=== PATIENT | male | born 1955 | race Caucasian/White ===

== ENCOUNTER 2019-08-30 14:23 | Outpatient (RCR) | payer MEDICARE, SELFPAY ==
--- NOTE | 2019-08-30 15:36 | PTOPEVAL ---
PHYSICAL THERAPY EVALUATION AND PLAN OF CARE 08-30-2019 The PT evaluation was completed for the diagnosis of R knee pain. With the evaluation, it appears that he may have issues with his medial meniscus or arthritis of the medial joint. He was educated on monitoring his knee, using ice, over the counter meds and activity/rest balance. He has good ROM and strength over his knee and hip. Leukotape was applied to his medial knee and he was educated on how to apply and name of the tape to obtain, if it helped his pain. He is to call if he has any further questions, or if he has any changes and feels he needs to come in for additional treatment, with his plan of care set for 0-2x/week for 4 weeks. Thank you for referring Joey Graham to [facility]. Please review, sign, date and return this plan of care AKI. I agree with and certify that the following plan of care is medically necessary. Referring Physician Date Attending Provider: DO Lilibeth BurciagaPT Outpatient Evaluation Start: 08/30/19 14:39 Document 08/30/19 14:35 SOFI (Rec: 08/30/19 15:33 SOFI [email or web address]) Outpatient Past Medical History Past Medical History Source of Past Medical History Patient Neurological History Hx Neurological Disorders No Significant History Cardiovascular History Hx Deep Vein Thrombosis Yes: 15 years ago- on blood thiner: L calf,pulmonary embolism Hx Hypercholesterolemia Yes: meds Hx Hypertension Yes: meds Respiratory History Hx Pulmonary Embolism Yes: After DVT on Xarelto Gastrointestinal History Hx Polyps Yes: colon Genitourinary History Hx Genitourinary Disorders No Significant History Musculoskeletal History Hx Other Musculoskeletal Disorders Yes: R knee pain, R foot pain/ Joyce neuroma Hematological History Hx Hematological Disorders No Significant History Endocrine History Hx Endocrine Disorders No Significant History HEENT History Hx HEENT Disorders No Significant History Integumentary History Hx Skin Disorders No Significant History Reproductive History Hx Reproductive Disorders No Significant History Psychosocial History Hx Psychiatric Disorders No Significant History Pain History History of Any Previous or Ongoing No Significant History Instance of Pain Anesthesia History Hx Anesthesia Reactions No Significant History Evaluation Information Problem Diagnosis R knee pain Onset June 2019 Subjective Information gradual pain, doing more Query Text:As Reported By Patient/ walking; stairs, cross leg Family increase pain; Diagnostic Tests X-Rays For This Problem No MRI For This Problem No Other Tests For This Problem No Previous Treatments Previous Treatments For This Problem no PT or treatment Prior Level of Function Activity Level (Last
--- NOTE | 2019-10-28 13:47 | PCPTNOTE ---
DISCHARGE PHYSICAL THERAPY 10-28-2019 Attending Provider: Carlyle Wesley DO Patient:Joey Graham Date of :1955 Joey has not returned for any further treatments since the PT evaluation on 08/30/2019, for the diagnosis of R knee pain, therefore he will be discharged at this time. The goals were not assessed. Thank you for referring Mr. Graham to [facility]. Please review, sign, date and return this discharge summary AKI. I have been updated about the patient's current status and I agree with discharge from the above service at this time. Referring Physician Date
== END 2019-10-29 07:43 | disposition home or self-care (01) ==
LOC: ANHPT 14:23
PROVIDERS: PCP Internal Medicine; Visit Provider Internal Medicine
DX: M25.561 Pain in right knee (principal)
CPT/HCPCS: 97161

== ENCOUNTER 2024-03-27 15:14 | Outpatient (CLI) | payer MEDICARE, SELFPAY ==
--- NOTE | ~2024-03-27 | XR_ITS ---
EXAMINATION: XR knee LT 3V DATE: 03/27/2024 15:24 INDICATION: Left knee pain. TECHNIQUE: 3 views of left knee were obtained. COMPARISON: None. FINDINGS: Alignment is normal. No fracture. There is mild osteoarthritis of medial and lateral compar tments characterized by tiny osteophytes. No joint space narrowing. No knee joint effusion. IMPRESSION: 1. Mild left knee osteoarthritis. Reviewed, dictated and finalized at location B. L [facility] [employer] [facility]W[employer]
--- NOTE | ~2024-03-27 | XR_ITS ---
EXAMINATION: XR knee RT 3V DATE: 03/27/2024 15:24 INDICATION: Right knee pain. TECHNIQUE: 3 views of right knee were obtained. COMPARISON: None. FINDINGS: Alignment is normal. No fracture. There is mild osteoarthritis of patellofemoral compartmen t. There is a small knee joint effusion. IMPRESSION: 1. Mild right knee osteoarthritis. 2. Small right knee joint effusion. Reviewed, dictated and finalized at location B. 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
== END 2024-03-27 15:15 | disposition home or self-care (01) ==
LOC: MICIMG 15:15
PROVIDERS: PCP Nurse Practitioner; Visit Provider Nurse Practitioner
DX: M17.0 Bilateral primary osteoarthritis of knee (principal); M25.461 Effusion, right knee
CPT/HCPCS: 73562

== ENCOUNTER 2024-06-19 00:30 | Day surgery (SDC) | payer MEDICARE, SELFPAY ==
[2024-06-11 14:45] VITALS: BMI 29.9
--- NOTE | 2024-06-11 14:54 | SUR.PREOP ---
Spoke with patient in regards to procedure on 06/19/24. Patient verbalized understanding that last dose should be take on 06/16/24 and will be informed by endoscopist when to resume.
--- OUTSIDE RECORDS SUMMARY | 2024-06-19 00:33 | XMS_ITS | Clinical Summary ---
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 Gender Identity Not on file Sexual Orientation Not on file Plan of Treatment Health Maintenance Due Date Last Done Comments Hepatitis C Virus (HCV) Screening 1955 Colonoscopy 1998 Colorectal Cancer Screening 1998 Cologuard 09/20/2003 Immunochemical Fecal Occult Blood 09/20/2003 Pneumococcal Immunization (50+ years) (1 of 1 - PCV) 09/20/2003 PSA Discussion 2008 Zoster Immunization (2 of 2) 02/03/2020 12/09/2019 Influenza Immunization (#1) 11/05/202307/2019, 11/28/2018, 01/28/2018, Additional history exists SARS-COV-2 Immunization ( - season) 2023 Respiratory Syncytial Virus (RSV) Immunization (Adult) (1 - 1-dose 75+ series) 2028 DTaP/Tdap/Td Immunization Discontinued 12/10/2015 TdaP Immunization Completed 12/10/2015 Hepatitis B Immunization Aged Out No longer eligible based on patient's age to complete this topic Meningococcal Immunization (ACWY) Aged Out No longer eligible based on patient's age to complete this topic Rotavirus Immunization Aged Out No lo nger eligible based on patient's age to complete this topic
[2024-06-19 08:43] VITALS: BP 141/83; PULSE 72; RESP 20; TEMP 36.5; O2SAT 100; BMI 29.7
[2024-06-19] MEDS: LACTATED RINGERS 1,000 ML 150 ML IV CONT (08:46)
--- NOTE | 2024-06-19 09:14 | P.PNAN_ITS ---
Anes - Initial Pre Proc Eval Procedure: Operation Date: 06/19/24 10:00 Proposed Procedures p Colonoscopy - Emilio Meeks MD Date/Time: 06/19/24 09:14 Surgeon: Emilio Meeks MD Pre Op Diagnosis: Personal hx colon polyps Patient Data Age: 68 Gender: M Height: 1.83 m Weight: 99.6 kg Last Vital Signs Temp 36.5 C 06/19/24 08:43 Pulse 72 06/19/24 08:43 Resp 20 06/19/24 08:43 BP 141/83 H 06/19/24 08:43 Pulse Ox 100 06/19/24 08:43 O2 Del Method Room Air 06/19/24 08:43 Allergies Allergy/AdvReac Type Severity Reaction Status Date / Time No Known Allergies Allergy Mild Verified 06/19/24 08:40 Home Medications ?Medication ?Instructions ?Recorded ?Confirmed ?Type lisinopril 20 See Rx Instructions .Route 02/12/24 06/19/24 Rx mg-hydrochlorothiazide 25 mg tablet .COMPLEX #90 tabs atorvastatin 20 mg tablet See Rx Instructions .Route 03/22/24 06/19/24 Rx .COMPLEX #90 tabs sildenafil 100 mg tablet (Viagra) 100 mg PO DAILY PRN sexual 03/27/24 06/11/24 Rx activity #30 tabs rivaroxaban 20 mg tablet (Xarelto) See Rx Instructions .Route 04/22/24 06/19/24 Rx .COMPLEX #90 tabs Patient hx anesthesia problems: none Family hx anesthesia problems: none Results Review: All pre-operative results and documents have been reviewed as part of the pre- operative evaluation. [facility] Past Medical History Medical History BMI 31.0-31.9,adult Pulmonary embolism Screening for prostate cancer Protein C deficiency BPH w/o urinary obs/LUTS Dupuytren contracture Elevated blood pressure reading in office with white coat syndrome, with diagnosis of hypertension Hyperlipidemia, unspecified Male erectile dysfunction, unspecified DVT (deep venous thrombosis) Hyperlipidemia HTN (hypertension) Family History Family History Father Hypertension Family history of atrial fibrillation Heart disease CHF (congestive heart failure) Mother Hypertension Sibling , Covid-19 2020 69 years old No problems noted. Sibling No problems noted. Social History Social History Smoking packs per day: 1 Smoking cigarettes per day: 20.0 Years smoked: 20 Smoking pack-years: 20.00 Smoking status: Former smoker Tobacco type: cigars Smoking end date: 04/26/07 Alcohol intake: current Drinks per week: 6 Alcohol use details: occasional Substance use: never Substance use type: does not use Current Housing: Decline to Answer Concerned About Future Housing: Decline to Answer Difficulty Paying Gas/Electric Bills: Decline to Answer Difficulty Paying for Meds: Decline to Answer Currently Unemployed: Decline to Answer Education: Decline to Answer Difficulty w/ Childcare or Family Care: Decline to Answer Living arrangements: with family Occupation/Education: retired Additional occupation/education comments: [employer] Gender identity (if verbalized by the patient): Male Anes - Eval Final PreProcedure Day of Procedure 06/19/24 09:14 Patient weight: overweight Heart: regular rate and rhythm Lungs: clear to auscultation Airway: Mallampati scale class II Neurological: alert and oriented Last oral intake: >/= 8 hours ASA classification: III Emergent: no Anesthetic plan: proceed Anesthesia type and monitoring: general GIVS and standard monitoring Results Review: All pre-operative results and documents have been reviewed as part of the pre- operative evaluation. Informed Consent: The patient's anesthetic plan and its attendant risks and benefits were discussed with the patient/family/POA. Questions were solicited and answers provided to the satisfaction of the patient/family/POA.
--- NOTE | 2024-06-19 09:36 | P.HP_ITS ---
History of Present Illness History of Present Illness Consent: Risks, benefits, and alternatives have been discussed and questions answered. Patient agrees to proceed with procedure. Chief complaint: Personal hx colon polyps Narrative: Joey Graham is a 68 year old male with history polyp, last colonoscopy 2019 Review of Systems Review of Systems: All systems reviewed & are unremarkable except as noted in HPI and below PMFSH Past Medical History Medical History BMI 31.0-31.9,adult Pulmonary embolism Screening for prostate cancer Protein C deficiency BPH w/o urinary obs/LUTS Dupuytren contracture Elevated blood pressure reading in office with white coat syndrome, with diagnosis of hypertension Hyperlipidemia, unspecified Male erectile dysfunction, unspecified DVT (deep venous thrombosis) Hyperlipidemia HTN (hypertension) Family History Family History Father Hypertension Family history of atrial fibrillation Heart disease CHF (congestive heart failure) Mother Hypertension Sibling , Covid-2020 69 years old No problems noted. Sibling No problems noted. Social History Social History Smoking packs per day: 1 Smoking cigarettes per day: 20.0 Years smoked: 20 Smoking pack-years: 20.00 Smoking status: Former smoker Tobacco type: cigars Smoking end date: 04/26/07 Alcohol intake: current Drinks per week: 6 Alcohol use details: occasional Substance use: never Substance use type: does not use Current Housing: Decline to Answer Concerned About Future Housing: Decline to Answer Difficulty Paying Gas/Electric Bills: Decline to Answer Difficulty Paying for Meds: Decline to Answer Currently Unemployed: Decline to Answer Education: Decline to Answer Difficulty w/ Childcare or Family Care: Decline to Answer Living arrangements: with family Occupation/Education: retired Additional occupation/education comments: [employer] Gender identity (if verbalized by the patient): Male Meds Home Medications and Allergies Home Medications ?Medication ?Instructions ?Recorded ?Confirmed ?Type lisinopril 20 See Rx Instructions .Route 02/12/24 06/19/24 Rx mg-hydrochlorothiazide 25 mg tablet .COMPLEX #90 tabs atorvastatin 20 mg tablet See Rx Instructions .Route 03/22/24 06/19/24 Rx .COMPLEX #90 tabs sildenafil 100 mg tablet (Viagra) 100 mg PO DAILY PRN sexual 03/27/24 06/11/24 Rx activity #30 tabs rivaroxaban 20 mg tablet (Xarelto) See Rx Instructions .Route 04/22/24 06/19/24 Rx .COMPLEX #90 tabs Allergies Allergy/AdvReac Type Severity Reaction Status Date / Time No Known Allergies Allergy Mild Verified 06/19/24 08:40 Vital Signs Vital Signs - 24 hr 06/19/24 08:43 Temperature 97.7 F Pulse Rate 72 Respiratory Rate 20 Blood Pressure 141/83 H Pulse Oximetry 100 Oxygen Delivery Room Air Exam Const: General: comfortable and no acute distress HENMT: Face/Nose/Sinus: Normal nares present Eyes: General: appearance normal, both eyes and all related structures Neck: Neck: no JVD Resp: Auscultation: clear to auscultation bilaterally Cardio: Rate: regular rate Rhythm: regular rhythm GI: Inspection: non-distended GI Palp: Yes Soft to palpation Skin: General skin exam: normal color Neuro: Speech: normal speech Extrem: General: normal to inspection Psych: Mental Status: mental status grossly normal Assessment and Plan Assessment and plan (1) History of colon polyps: Code(s): Z86.0100 - Personal history of colon polyps, unspecified Status: Acute Assessment and Plan: colonoscopy
[2024-06-19 09:59] VITALS: BP 98/64; PULSE 67; RESP 19; O2SAT 99
[2024-06-19 10:09] VITALS: BP 110/75; PULSE 66; RESP 20; O2SAT 98
[2024-06-19 10:19] VITALS: BP 120/76; PULSE 61; RESP 17; O2SAT 100
== END 2024-06-19 10:25 | disposition home or self-care (01) ==
PROVIDERS: PCP Internal Medicine; Referring Provider Nurse Practitioner; Visit Provider Internal Medicine Gastroenterology
PROC: 0DJD8ZZ Inspection of Lower Intestinal Tract, Via Natural or Artificial Opening Endoscopic (ICD-10-PCS; CPT 45378; principal; 2024-06-19 10:00)
DX: Z12.11 Encounter for screening for malignant neoplasm of colon (principal); D12.2 Benign neoplasm of ascending colon; K64.8 Other hemorrhoids; E78.5 Hyperlipidemia, unspecified; N52.9 Male erectile dysfunction, unspecified; I10 Essential (primary) hypertension; D68.59 Other primary thrombophilia; N40.0 Benign prostatic hyperplasia without lower urinary tract symptoms; M72.0 Palmar fascial fibromatosis [Dupuytren]; Z79.01 Long term (current) use of anticoagulants; Z87.891 Personal history of nicotine dependence; Z86.711 Personal history of pulmonary embolism; Z86.718 Personal history of other venous thrombosis and embolism; Z82.49 Family history of ischemic heart disease and other diseases of the circulatory system
CPT/HCPCS: 45385; 88305; J2003; J2704; J7120

== ENCOUNTER 2024-07-01 14:00 | Outpatient (RCR) | payer MEDICARE, SELFPAY ==
--- NOTE | 2024-06-06 17:41 | OPREHPOC ---
Outpatient Therapy Plan of Care This is a Multidisciplinary Plan of Care that may contain components documented by all disciplines (PT, OT, and ST.) PT Problem 1 PT Problem #1 Knowledge Deficit PT Goal 1 Goal / Goal Update [place] with HEP Target Visit 2 PT Goal 2 Goal / Goal Update Report no pain greater than 2/10 in 4 weeks Target Visit 4 PT Problem 2 PT Problem #2 Impaired Flexibility PT Goal 1 Goal / Goal Update 1. Improve [place] hip abduction to 40 degrees to improve gross functional mobility 2. Demonstrate hamstring restriction of less that -20 degrees [place] 3. Improve piriformis restriction to minimal bilaterally Target Visit 4
--- NOTE | 2024-06-06 17:41 | PTOPEVAL1 ---
Assessment and note entered by Mushtaq Arteaga, PT Evaluation Information Assessment Status Evaluation ICD-10 Condition Codes (PT) Pain in right knee M25.561,Pain in left knee M25. 562 Onset Chronic Subjective Information Reports that he has been having knee pain for a while now and notices it the most when he is going up and down stairs. Reports that he tweaked his back a week ago on the left side and this is a new issue. The knee issues have been going on over an extended work process brought on mostly by activity. Pain is relieved with sleeping but the lower back pain is present more consistently. Reported Pain Level Pain Score 1: Self Report Assessment PT Clinical Summary Patient presents with ROM and flexibility deficits of [place] hips and ankles resulting in likelihood of increased knee pain. Patient also has onset of low back pain which base don hip measures can be directly correlated. Patient will benefit form skilled therpay to address flexibility and ROM deficits with core strengthening to resolve pain conflicts. Quad strengthening will be avoided. Plan of Care Interventions Gait Training,Manual Therapy,Neuro Re-education, Therapeutic Activities,Therapeutic Exercise PT Services Indicated Yes Treatment Frequency and 1x/week for 4 visits Duration These treatments will address the objective and functional deficits as defined above. The patient will be advanced safely and appropriately in order for the patient to progress towards his/her prior level of function. Additional exercises will be introduced and as well as a comprehensive home exercise program upon discharge, if needed, ?to ensure carryover of functional gains achieved in the clinic. This treatment plan has been reviewed and agreement upon by the patient.
--- NOTE | 2024-07-01 15:42 | OPREHPOC ---
Outpatient Therapy Plan of Care This is a Multidisciplinary Plan of Care that may contain components documented by all disciplines (PT, OT, and ST.) PT Problem 1 PT Problem #1 Knowledge Deficit PT Goal 1 Goal / Goal Update [place] with HEP Target Visit 2 Progress Met PT Goal 2 Goal / Goal Update Report no pain greater than 2/10 in 4 weeks Target Visit 4 Progress Met PT Problem 2 PT Problem #2 Impaired Flexibility PT Goal 1 Goal / Goal Update 1. Improve [place] hip abduction to 40 degrees to improve gross functional mobility 2. Demonstrate hamstring restriction of less that -20 degrees [place] 3. Improve piriformis restriction to minimal bilaterally Target Visit 4 Progress Met
--- NOTE | 2024-07-01 15:42 | PTOPDC ---
Assessment and note entered by Mushtaq Arteaga, PT Evaluation Information Assessment Status Discharge ICD-10 Condition Codes (PT) Pain in right knee M25.561,Pain in left knee M25. 562 Onset Chronic Subjective Information Patient reports improved hip mobility, no more knee pain, and reduced back pain at this time. No concerns with current exercise program or addition of core strengthening exercises. Reported Pain Level Pain Score 0: Self Report Assessment PT Clinical Summary Patient has met all goals for therapy at this time and is suitable for discharge to [facility]. Patient independent and compliant. Plan of Care PT Services Indicated Yes
== END 2024-07-02 09:16 | disposition home or self-care (01) ==
LOC: ANHPT 14:00
PROVIDERS: PCP Internal Medicine; Visit Provider Orthopaedic Surgery
DX: M25.561 Pain in right knee (principal); M25.562 Pain in left knee
CPT/HCPCS: 97110; 97140; 97161